=== PATIENT | male | born 1960 ===

== ENCOUNTER 2024-09-27 05:49 | Day surgery (SDC) | payer OTHER, SELFPAY ==
[2024-09-27] VITALS (15 sets, daily range): BP systolic 109–135; BP diastolic 59–86; PULSE 62; O2SAT 96–98; BMI 22.9
[2024-09-27] MEDS: TYLENOL 1000 MG PO ×4 (06:16→23:40)
[2024-09-27] MEDS: CELEBREX 200 MG PO (06:16)
[2024-09-27] MEDS: METHOCARBAMOL 1500 MG PO (06:16)
[2024-09-27] MEDS: NORMOSOL-R/PLASMALYTE-A 1000 IV ×2 (06:41→10:12)
--- NOTE | 2024-09-27 10:30 | PTCARENOTE ---
pt admitted to 2S room 2115 from the PACU @2439. pt oriented to room, call rooney, bed controls and plan of care with verbalized understanding. admission database and assessment completed as documented. pt verbalized no one to list as emergency
contact. care ongoing.
--- NOTE | 2024-09-27 10:52 | W.PN.UPDATE ---
Update Note
Progress Note Update
Cervical stenosis s/p C5-C6, C6-C7 ACDF w/ Dr Christiansen 09/27/24
DVT prophylaxis - b/l SCDs/TEDs
Previous [place] per records
Premature supraventricular complexes per pre-op EKG
LAFB
- Monitor on tele
COPD - monitor O2
- IS
- Duonebs as needed
GERD - add Pepcid HS
Lumbar DDD s/p lumbar lami/fusion 02/2024
HLD
H/o syncope
Diverticulitis s/p sigmoid resection 2021
Nephrolithiasis
Remote skull fx
Skin CA
Insomnia
[place]
--- NOTE | 2024-09-27 11:39 | W.PN.SP ---
Today's Communication / Plan
-
Plan for 23 hour admit for safety
Subjective / Objective
Subjective Data
Patient was admitted after 2 level ACDF due to more than typical bleeding. Hemostasis was well achieved but want to remain overnight in case any airway issues arise
Objective Data
Vital Signs
Temp Pulse Resp BP Pulse Ox
97.7 F 58 14 129/76 98
09/27/24 10:55 09/27/24 10:55 09/27/24 10:55 09/27/24 10:55 09/27/24 10:55
Intake and Output
09/26/24 09/27/24 09/28/24
06:59 06:59 06:59
Intake Total 580 / 580
Balance 580 / 580
Intake:
Oral fluids 480 / 480
IV fluids (Total) 100 / 100
Normosol 100 / 100
[2024-09-27] MEDS: CRESTOR PO ×2 (11:41→11:44)
[2024-09-27] MEDS: ULTRAM 50 MG PO ×3 (11:42→21:26)
[2024-09-27] MEDS: NEURONTIN 600 MG PO ×2 (16:36→23:40)
[2024-09-27] MEDS: ANCEF 5 IV ×2 (16:36→23:39)
[2024-09-27] MEDS: MELATONIN 5 MG PO (21:26)
[2024-09-27] MEDS: PEPCID 20 MG PO (21:26)
[2024-09-27] MEDS: NORMOSOL-R/PLASMALYTE-A IV (21:28)
[2024-09-28] MEDS: NORMOSOL-R/PLASMALYTE-A 1000 IV (00:07)
[2024-09-28 03:19] VITALS: BP 114/68
[2024-09-28] MEDS: ULTRAM 50 MG PO ×2 (05:00→10:08)
[2024-09-28] MEDS: NORMOSOL-R/PLASMALYTE-A IV (05:40)
[2024-09-28] MEDS: TYLENOL 1000 MG PO ×2 (06:03→12:36)
[2024-09-28 06:51] LABS: Hematocrit 36.8 % (39.0-52.0); Hemoglobin 12.6 g/dL (13.0-18.0)
[2024-09-28 07:09] LABS: Blood Urea Nitrogen 7 mg/dl (9-20); Calcium 8.2 mg/dl (8.4-10.2); Carbon Dioxide 22 mmol/L (22-30); Chloride 111 mmol/L (98-107); Estimated Creatinine Clearance > 125 ml/min; Glucose 84 mg/dl (70-99); Potassium 4.0 mmol/L (3.5-5.1); Sodium 139 mmol/L (135-145); eGFR > 60.00
[2024-09-28 07:35] VITALS: BP 108/68
--- NOTE | 2024-09-28 08:08 | W.DS.TRANS ---
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
-
Discharge Instructions:
Sleep Apnea Risk Low
Discharge Diagnosis/Procedures Cervical stenosis s/p C5-C6, C6-C7 ACDF w/ Dr
Christiansen 09/27/24
Diet Regular
Additional Diets Adequate hydration and minimize opioids to
prevent low blood pressure/dizziness.
Activity As tolerated
Additional Activity No heavy lifting >10 lbs
Driving Restrictions Not until seen by your Dr
Bathing Restrictions OK to shower in 4 days
Instructions:
Stand-Alone Forms: [facility] Cervical D/C Inst.
Changes to Home Medications: No
Discharge Medications:
DC Medications w/original date entered in [employer]
gabapentin 600 mg tablet,extended release 24 hr 600 mg PO TID 09/19/24
melatonin 5 mg tablet 5 mg PO HS 09/19/24
pantoprazole 40 mg tablet,delayed release 40 mg PO DAILY 09/19/24
rosuvastatin 5 mg tablet 5 mg PO DAILY 09/19/24
Home Medication Changes
Pending Results: No
--- NOTE | 2024-09-28 08:09 | W.PN.SP ---
Today's Communication / Plan
-
s/p acdf
Soft collar is adequate for this
PT
D/C
Subjective / Objective
Subjective Data
Pt doing well
Scapula pain better
Left arm better
Was admitted for airway being small
No trouble breathing
Objective Data
Vital Signs
Temp Pulse Resp BP Pulse Ox
97.9 F 49 18 108/68 98
09/28/24 07:35 09/28/24 07:35 09/28/24 07:35 09/28/24 07:35 09/28/24 07:35
Intake and Output
09/27/24 09/28/24 09/29/24
06:59 06:59 06:59
Intake Total 2585 / 2585
Output Total 2550 / 2550
Balance 35 / 35
Intake:
Oral fluids 480 / 480
IV fluids (Total) 2100 / 2100
Normosol 100 / 100
IV piggybacks 5 / 5
Output:
Urine, Voided 2550 / 2550
Lab Data
09/28/24 05:45
09/28/24 05:45
Physical Exam
-
MOving UE stable
[2024-09-28] MEDS: PROTONIX 40 MG PO (08:59)
[2024-09-28] MEDS: NEURONTIN 600 MG PO (08:59)
[2024-09-28] MEDS: CRESTOR 5 MG PO (08:59)
[2024-09-28 09:07] VITALS: BP 123/64; PULSE 60; O2SAT 97
--- NOTE | 2024-09-28 10:36 | W.PN.ORTHO ---
Today's Communication / Plan
-
D/c today since clinically stable, did well w/ PT and OT.
Assessment
.
Distal Motor Intact: Yes
Dressing:
Clean, dry and intact.
Assessment:
Cervical stenosis s/p C5-C6, C6-C7 ACDF w/ [facility] 09/27/24
DVT prophylaxis - b/l SCDs/TEDs
Mild post-op anemia - hgb 12.6 POD 1
- Result could be partially hemodilutional given IVF overnight
- Asymptomatic, hemodynamically stable
Previous [place] per records
Premature supraventricular complexes per pre-op EKG
LAFB
- Rhythm stable on tele (asymptomatic sinus jocelyn)
COPD - O2 stable on RA
- IS
- Duonebs as needed
GERD - added Pepcid HS
- Continue daily Protonix upon d/c
Lumbar DDD s/p lumbar lami/fusion 02/2024
HLD
H/o syncope
Diverticulitis s/p sigmoid resection 2021
Nephrolithiasis
Remote skull fx
Skin CA
Insomnia
[place]
I did tell the patient his pain may get worse before it gets better due to inflammation that likely will set in. Per his preference, however, I will Rx Tramadol as needed for moderate-severe post-operative pain. Should his pain be uncontrolled with
Tylenol ATC, Gabapentin q8h, and Tramadol as needed, he was advised to call his surgeon's office for further instructions.
Plan
.
Surgery / Date: C5-C6, C6-C7 ACDF w/ [facility] 09/27/24
DVT Prophylaxis: Other (b/l SCDs/TEDs)
Activity:
Out of bed.
PT/OT
Discharge Plan: Home
Subjective
.
.:
Patient resting comfortably in his chair.
Minimal incisional pain noted. No Oxycodone needed overnight.
Denies any new acute complaints.
Labs w/ mild anemia; otherwise labs relatively stable.
Eager for potential d/c today.
Vital Signs and Labs
.
Vital Signs and Labs:
Lab Results
09/28/24 05:45
09/28/24 05:45
Temp Pulse Resp BP Pulse Ox
97.9 F 49 18 108/68 98
09/28/24 07:35 09/28/24 07:35 09/28/24 07:35 09/28/24 07:35 09/28/24 08:45
Physical Exam
-
HEENT: No pallor, cyanosis, or jaundice. Throat clear.
NECK: Supple. + Cervical collar.
RESPIRATORY: Lungs clear to auscultation.
CVS: S1, S2 normal. RRR.�
ABDOMEN: Soft, non-tender. No distension.
EXTREMITIES: Strength equal, no calf pain with palpation/dorsiflexion. Calves soft.
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 No focal deficits. radiology rn grossly intact
--- NOTE | 2024-09-28 10:37 | CM ---
Patient seen at bedside on . Patient states that he lives in a private home with other roomates and he primarily is on the first floor. Patient has a walker and a cane but does not use them much. Patient to use cane at discharge. Patient PCP
is Dr. Mary Beth Jacob and he uses the [facility] on [address], [place]. CM will continue to follow for discharge planning needs.
Plan; home no needs.
[2024-09-28 10:46] VITALS: BP 110/73
--- NOTE | 2024-09-28 10:49 | W.DS.TRANS ---
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
-
Discharge Instructions:
Sleep Apnea Risk Low
Discharge Diagnosis/Procedures Cervical stenosis s/p C5-C6, C6-C7 ACDF w/ Dr
Christiansen 09/27/24
Diet Regular
Additional Diets Adequate hydration and minimize opioids to
prevent low blood pressure/dizziness.
Activity As tolerated
Additional Activity No heavy lifting >10 lbs
Driving Restrictions Not until seen by your Dr
Bathing Restrictions OK to shower in 4 days
Instructions:
Stand-Alone Forms: [facility] Cervical D/C Inst.
Changes to Home Medications: Yes
Discharge Medications:
DC Medications w/original date entered in [employer]
melatonin 5 mg tablet 5 mg PO HS 09/19/24
pantoprazole 40 mg tablet,delayed release 40 mg PO DAILY 09/19/24
rosuvastatin 5 mg tablet 5 mg PO DAILY 09/19/24
Saccharomyces boulardii 250 mg capsule (Florastor) 250 mg PO BID #10 caps 09/28/24
acetaminophen 500 mg tablet (Tylenol Extra Strength) 1,000 mg (2 x 500 mg) PO Q6H #60 tabs 09/28/24
cephalexin 500 mg capsule 500 mg PO Q6H #20 caps 09/28/24
docusate sodium 100 mg capsule 100 mg PO BID #30 caps 09/28/24
gabapentin 300 mg capsule 600 mg (2 x 300 mg) PO Q8 neuropathic pain #1 cap 09/28/24
ondansetron HCl 4 mg tablet 4 mg PO Q6H PRN nausea and vomiting #30 tabs 09/28/24
sennosides 8.6 mg tablet (Sayra-sumaya) 17.2 mg (2 x 8.6 mg) PO BID #30 tabs 09/28/24
tramadol 50 mg tablet 50 - 100 mg (1 - 2 x 50 mg) PO Q6H PRN moderate-severe pain #30 tabs 09/28/24
Home Medication Changes
Saccharomyces boulardii 250 mg capsule (Florastor) 250 mg PO BID #10 caps 09/28/24
acetaminophen 500 mg tablet (Tylenol Extra Strength) 1,000 mg (2 x 500 mg) PO Q6H #60 tabs 09/28/24
cephalexin 500 mg capsule 500 mg PO Q6H #20 caps 09/28/24
docusate sodium 100 mg capsule 100 mg PO BID #30 caps 09/28/24
gabapentin 300 mg capsule 600 mg (2 x 300 mg) PO Q8 neuropathic pain #1 cap 09/28/24
ondansetron HCl 4 mg tablet 4 mg PO Q6H PRN nausea and vomiting #30 tabs 09/28/24
sennosides 8.6 mg tablet (Sayra-sumaya) 17.2 mg (2 x 8.6 mg) PO BID #30 tabs 09/28/24
tramadol 50 mg tablet 50 - 100 mg (1 - 2 x 50 mg) PO Q6H PRN moderate-severe pain #30 tabs 09/28/24
Pending Results: No
== END 2024-09-28 12:39 | disposition home or self-care (01) ==
LOC: SDS 05:49
PROVIDERS: Physician Assistant; ATTENDING PHYSICIAN Orthopaedic Surgery Orthopaedic Surgery of the Spine
DX: M48.02 Spinal stenosis, cervical region (principal)
CPT/HCPCS: 22551; 22853; 22552; 20930; C1776; 72020; 80048; 85014; 85018; 97116; 97162; 97166; 97530; 97535